=== PATIENT | male | born 1995 | race Caucasian/White ===

== ENCOUNTER 2018-02-25 02:38 | Emergency (ER) | payer OTHER ==
[2018-02-25] MEDS: dexameTHASONE 20 MG/5 ML VIAL (J1100) IV (03:14)
[2018-02-25] MEDS: diphenhydrAMINE INJ 50MG/ML VIAL (J1200) IV (03:18)
== END 2018-02-25 04:43 | disposition home or self-care (01) ==
LOC: M ED 02:38
DX: T78.40XA Allergy, unspecified, initial encounter (principal); I48.91 Unspecified atrial fibrillation; Y92.9 Unspecified place or not applicable; Y93.9 Activity, unspecified; J45.909 Unspecified asthma, uncomplicated; I49.1 Atrial premature depolarization; Z79.899 Other long term (current) drug therapy
CPT/HCPCS: J1200